=== PATIENT | male | born 1990 | race Caucasian/White ===

== ENCOUNTER 2016-05-30 02:40 | Observation (INO) | payer OTHER ==
[~2016-05-30] VITALS: Ht 182.9 cm; Wt 64.0 kg
[2016-05-30 03:35] LABS: BASO % 0.5 %; BASO ABS # 0.05 K/uL (0-0.2); COMPLETE YES; EOS % 0.9 %; HEMATOCRIT 34.5 % (42-52); IG% 0.3 %; LYMPH % 9.7 %; LYMPH ABS # 0.93 K/uL (1.2-3.4); MEAN CELL VOLUME 88.5 fL (80-100); MEAN CORPUSCULAR HEMOGLOBIN 31.8 pg (25-34); MEAN CORPUSCULAR HGB CONC 35.9 g/dl (32-36); MEAN PLATELET VOLUME 10.1 fL (7.4-10.4); MONO % 8.6 %; PLATELET COUNT 190 K/uL (130-400); WHITE BLOOD COUNT 9.58 K/uL (4.8-10.8)
[2016-05-30] MEDS ORDERED: LORAZEPAM 2 MG/ML 1 ML VIAL IV STA (03:35)
[2016-05-30 03:44] LABS: INR 1.1 (0.9-1.1); PROTHROMBIN TIME (PATIENT) 11.3 SECONDS (9.0-12.0)
[2016-05-30 03:46] LABS: URINE APPEARANCE TURBID (CLEAR); URINE BILIRUBIN NEG (NEG); URINE COLOR YELLOW; URINE NITRITE NEG (NEG); URINE SPECIFIC GRAVITY 1.018 (1.000-1.030); UROBILINOGEN NEG (NEG)
[2016-05-30 03:48] LABS: MANUAL MICROSCOPIC REQUIRED? NO; REVIEW REQ? NO
[2016-05-30 03:50] LABS: BLOOD UREA NITROGEN 14 mg/dl (7-18); BUN/CREATININE RATIO 12.8 (10-20); CALCIUM 8.9 mg/dl (8.5-10.1); CARBON DIOXIDE 22 mmol/L (21-32); CHLORIDE 105 mmol/L (98-107); GLUCOSE 168 mg/dl (70-99); MAGNESIUM 2.3 mg/dl (1.8-2.4); POTASSIUM 3.4 mmol/L (3.5-5.1); SODIUM 138 mmol/L (136-145)
[2016-05-30] MEDS ORDERED: LEVETIRACETAM 500 MG TAB PO STA (03:59)
[2016-05-30 04:01] LABS: PHOSPHORUS 2.3 mg/dl (2.5-4.9)
[2016-05-30 04:12] LABS: BENZODIAZEPINE, URINE NEG (NEG); COCAINE,URINE NEG (NEG); PHENCYCLIDINE, URINE NEG (NEG)
[2016-05-30] MEDS ORDERED: POTASSIUM CHLORIDE 10 MEQ TABCR PO STA (04:15)
[2016-05-30] MEDS ORDERED: QUET1TAB10 PO (04:19)
[2016-05-30] MEDS ORDERED: BUSP30TA2 PO (04:19)
[2016-05-30] MEDS ORDERED: WLLSR150 PO (04:19)
[2016-05-30 04:31] LABS: ALKALINE PHOSPHATASE 141 U/L (45-117); ALT/SGPT 18 U/L (12-78); AST/SGOT 10 U/L (15-37)
--- NOTE | 2016-05-30 04:33 | EMERGENCY ROOM VISIT NOTE ---
History First contact with patient: 02:45 Chief Complaint: SHOULDER PAIN Stated Complaint: SHOULDER PAIN History of Present Illness The patient is a 25 year old male who presents to the Emergency Room with complaints of 2 possible seizures tonight and right shoulder pain. Patient is unsure how he hurt his right shoulder. Patient did not know he had a seizure. Patient describes the pain as aching, ranging in severity 6 out of 10 to the right shoulder. He is recovering from narcotic abuse. Patient was taking Percocet. He is been clean for one week. Patient denies any other illicit drug use. No alcohol use. No benzos. No prior history of seizures. Patient denies headache, neck pain, back pain, chest pain, dyspnea, abdominal pain or any other medical complaints. I did obtain history from the mother who witnessed the seizure tonight. She states he was walking to the bathroom, fell and shook for a few minutes. She also states that the girlfriend states that he had a shaking episode while in bed. She states that he was postictal. She states she was going over the check on him as he was complaining his shoulder was her all day. The patient is unsure of how he injured his shoulder. I asked the patient several times about illegal drug use and he denied this. Review of Systems See HPI for pertinent positives & negatives. A total of 10 systems reviewed and were otherwise negative. Past Medical/Surgical History Medical Problems: (1) Alcohol Abuse-Unspec (2) Cannabis Abuse-Unspec (3) Cocaine Abuse-Unspec (4) Sepsis (5) Tobacco Use Disorder Family History No family history noted Social History Smoking Status: Current Every Day Smoker Alcohol Use: occasionally Drug Use: none Marital Status: single Housing Status: lives with significant other Occupation Status: employed Current/Historical Medications Scheduled Bupropion HCl (Bupropion HCl Sr), 150 MG PO QPM Buspirone Hcl (Buspirone Hcl), 15 MG PO TID Quetiapine Fumarate (Seroquel), 200 MG PO HS Allergies Coded Allergies: No Known Allergies (Verified , 05/30/16) Physical Exam Vital Signs Date Time Temp Pulse Resp B/P Pulse Ox O2 Delivery O2 Flow Rate FiO2 05/30/16 03:34 100 18 115/58 96 Room Air 05/30/16 03:04 96 Room Air 05/30/16 02:55 109 05/30/16 02:51 36.7 89 18 115/74 96 Room Air Physical Exam VITALS: Vitals are noted on the nurse's note and reviewed by myself. Vital signs stable. GENERAL: Pleasant male, in no acute distress, nondiaphoretic, well-developed well-nourished. SKIN: The skin was without rashes, erythema, edema, or bruising. There is no tenting of the skin. Capillary reflex less than 2 seconds. HEAD: Normocephalic atraumatic. EARS: External auditory canals clear, tympanic membranes pearly chandler without erythema or effusion bilaterally. EYES: Pupils equal round and reactive to light and accommodation. Conjunctivae without injection, sclerae without icterus. Extraocular movements intact. NOSE: Patent, turbinates without inflammation or discharge. MOUTH: Mucous membranes moist. Pharynx without erythema or exudate. Uvula midline. Airway patent. Tongue does not deviate. NECK: Supple without nuchal rigidity. No lymphadenopathy. No thyromegaly. Cervical spine is nontender. No JVD. HEART: Regular rate and rhythm without murmurs gallops or rubs. LUNGS: Clear to auscultation bilaterally without wheezes, rales or rhonchi. No dullness to percussion. No retractions or accessory muscle use. ABDOMEN: Positive bowel sounds x 4. Normal tympanic percussion. Soft, nontender, without masses or organomegaly. Vanegas sign negative. No guarding or rebound tenderness. MUSCULOSKELETAL: No muscle atrophy, erythema, or edema noted. Right shoulder edematous and tender to palpation, no right clavicle, humeral or elbow pain. Radial pulses +2 equal present bilaterally. NEURO: Patient was alert and oriented to person place and time. Normal sensation to light and sharp touch. No focal neurological deficits. Medical Decision & Procedures Laboratory Results 05/30/16 03:15 Red Blood Count 3.90, Mean Corpuscular Volume 88.5, Mean Corpuscular Hemoglobin 31.8, Mean Corpuscular Hemoglobin Concent 35.9, Mean Platelet Volume 10.1, Neutrophils (%) (Auto) 80.0, Lymphocytes (%) (Auto) 9.7, Monocytes (%) (Auto) 8.6, Eosinophils (%) (Auto) 0.9, Basophils (%) (Auto) 0.5, Neutrophils # (Auto) 7.66, Lymphocytes # (Auto) 0.93, Monocytes # (Auto) 0.82, Eosinophils # (Auto) 0.09, Basophils # (Auto) 0.05 05/30/16 03:15 Test 05/30/16 03:15 05/30/16 03:30 White Blood Count 9.58 K/uL (4.8-10.8) Red Blood Count 3.90 M/uL (4.7-6.1) Hemoglobin 12.4 g/dL (14.0-18.0) Hematocrit 34.5 % (42-52) Mean Corpuscular Volume 88.5 fL (80-100) Mean Corpuscular Hemoglobin 31.8 pg (25-34) Mean Corpuscular Hemoglobin Concent 35.9 g/dl (32-36) Platelet Count 190 K/uL (130-400) Mean Platelet Volume 10.1 fL (7.4-10.4) Neutrophils (%) (Auto) 80.0 % Lymphocytes (%) (Auto) 9.7 % Monocytes (%) (Auto) 8.6 % Eosinophils (%) (Auto) 0.9 % Basophils (%) (Auto) 0.5 % Neutrophils # (Auto) 7.66 K/uL (1.4-6.5) Lymphocytes # (Auto) 0.93 K/uL (1.2-3.4) Monocytes # (Auto) 0.82 K/uL (0.11-0.59) Eosinophils # (Auto) 0.09 K/uL (0-0.5) Basophils # (Auto) 0.05 K/uL (0-0.2) RDW Standard Deviation 39.5 fL (36.4-46.3) RDW Coefficient of Variation 12.3 % (11.5-14.5) Immature Granulocyte % (Auto) 0.3 % Immature Granulocyte # (Auto) 0.03 K/uL (0.00-0.02) Prothrombin Time 11.3 SECONDS (9.0-12.0) Prothromb Time International Ratio 1.1 (0.9-1.1) Activated Partial Thromboplast Time 25.4 SECONDS (21.0-31.0) Partial Thromboplastin Ratio 1.0 Anion Gap 11.0 mmol/L (3-11) Est Creatinine Clear Calc Drug Dose 92.1 ml/min Estimated GFR () 106.8 Estimated GFR (Non- 92.2 BUN/Creatinine Ratio 12.8 (10-20) Calcium Level 8.9 mg/dl (8.5-10.1) Phosphorus Level 2.3 mg/dl (2.5-4.9) Magnesium Level 2.3 mg/dl (1.8-2.4) Thyroid Stimulating Hormone (TSH) 2.480 uIu/ml (0.300-4.500) Ethyl Alcohol mg/dL < 3.0 mg/dl (0-3) Urine Color YELLOW Urine Appearance TURBID (CLEAR) Urine pH 5.0 (4.5-7.5) Urine Specific Adell 1.018 (1.000-1.030) Urine Protein TRACE (NEG) Urine Glucose (UA) NEG (NEG) Urine Ketones TRACE (NEG) Urine Occult Blood NEG (NEG) Urine Nitrite NEG (NEG) Urine Bilirubin NEG (NEG) Urine Urobilinogen NEG (NEG) Urine Leukocyte Esterase NEG (NEG) Urine WBC (Auto) 1-5 /hpf (0-5) Urine RBC (Auto) 0-4 /hpf (0-4) Urine Hyaline Casts (Auto) 5-10 /lpf (0-5) Urine Epithelial Cells (Auto) 10-20 /lpf (0-5) Urine Bacteria (Auto) NEG (NEG) Urine Opiates Screen NEG (NEG) Urine Methadone, Qualitative NEG (NEG) Urine Barbiturates NEG (NEG) Urine Phencyclidine (PCP) Level NEG (NEG) Ur Amphetamine/Methamphetamine POS (NEG) MDMA (Ecstasy) Screen POS (NEG) Urine Benzodiazepines Screen NEG (NEG) Urine Cocaine Metabolite NEG (NEG) Urine Marijuana (THC) NEG (NEG) Medications Administered Medications (Trade) Dose Ordered Sig/Saira Route Start Time Stop Time Status Last Admin Dose Admin Lorazepam (Ativan Inj) 1 mg NOW STAT IV 05/30/16 03:35 05/30/16 03:36 DC 05/30/16 03:56 1 MG Levetiracetam (Keppra Tab) 1,000 mg NOW STAT PO 05/30/16 03:59 05/30/16 04:01 DC 05/30/16 04:11 1,000 MG ED Course Prior records/ancillary studies reviewed. Patient placed in seizure precautions immediately upon arrival. Nursing notes reviewed. Additional history obtained from family The patient's history was concerning for a possible seizure. Differential diagnosis: Etiologies such as infection, hypoglycemia, electrolyte abnormalities, cardiac sources, intracerebral event, trauma, toxicologic, neurologic, as well as others were entertained. Physical examination: As above. No signs of trauma. ER treatment provided: Keppra, IV fluids, Ativan On reassessment the patient felt better. Diagnostics interpretation by me: The labs revealed negative alcohol. + drug screen Imaging studies: Shoulder x-ray concerning for humeral head fracture per my interpretation. Patient was placed in a sling and neurovascular status was checked after placement and is intact. Stat radiology read the head skin negative for intracranial bleed Consultation: A consultation was placed with the hospitalist, Dr. Hernadez. The case was discussed and diagnostics were reviewed. Patient will be evaluated by medicine for possible admission. I consulted Dr. Cotton, neurology and recommended EEG, brain MRI, admission and Keppra. Patient was started on Keppra. He'll be evaluated by medicine. Further imaging was ordered as per recommendations of neurology. The patient was counseled not to drive until cleared in follow-up and seizure precautions given. I gave my usual and customary discussion regarding these issues. The appropriate [place] driver's license form was completed and submitted. The pt informed about the findings as listed above. All questions were answered and pleased with the treatment. case reviewed with my Attending Medical Decision As above Impression Primary Impression: Seizure Additional Impression: Fracture of humeral head, right, closed Departure Information Dispostion Being Evaluated By Hospitalist Condition FAIR Referrals No Doctor, Assigned (PCP) Patient Instructions My [facility] Problem Qualifiers
[2016-05-30] MEDS ORDERED: POTASSIUM PHOS 3 MMOL/1 ML INFUSION IV STA (05:31)
[2016-05-30] MEDS ORDERED: LORAZEPAM INJ 1 MG in SYRINGE 0.5 ML IV PRN ×2 (05:45→06:30)
[2016-05-30] MEDS ORDERED: LORAZEPAM 2 MG/ML 1 ML VIAL IV PRN (05:45)
[2016-05-30] MEDS ORDERED: ONDANSETRON INJ 2 MG/ML 2 ML VIAL IV PRN (05:45)
[2016-05-30] MEDS ORDERED: ACETAMINOPHEN 325 MG TAB PO PRN (05:45)
[2016-05-30] MEDS ORDERED: IV FLUIDS COMPLETED PRN (06:15)
--- NOTE | 2016-05-30 06:41 | DIAGNOSTIC IMAGING REPORT ---
RIGHT SHOULDER MIN 2 VIEWS ROUTINE CLINICAL HISTORY: Right shoulder pain status post trauma. Seizure. COMPARISON: None. DISCUSSION: There is acute intra-articular fracture involving the greater tuberosity. No dislocation is visualized. IMPRESSION: Acute intra-articular fracture involving the greater tuberosity. Electronically signed by: Laureano Juarez M.D. 05/30/2016 6:39 AM Dictated Date/Time: 05/30/2016 6:38 AM
[2016-05-30 07:00] VITALS: O2SAT 97; Ht 182.9 cm; Wt 64.0 kg
[2016-05-30 07:15] VITALS: BP 109/69; PULSE 87; TEMP 36.5; O2SAT 96
[2016-05-30 07:17] LABS: ESTIMATED AVERAGE GLUCOSE 100 mg/dl; HA1C FLAG Normal (Normal)
--- NOTE | 2016-05-30 07:19 | DIAGNOSTIC IMAGING REPORT ---
CT OF THE HEAD WITHOUT CONTRAST CLINICAL HISTORY: Seizure. COMPARISON STUDY: Head CT December 26, 2010. TECHNIQUE: Helical axial images of the head were obtained without IV contrast. Automated exposure control was utilized for the study. FINDINGS: No acute intracranial hemorrhage, midline shift or mass effect is present. Ventricular system is normal. The basilar cisterns are patent. No extra-axial collections are present. Pelaez-white differentiation is maintained. There are no CT findings to suggest acute dural sinus thrombosis or acute territorial infarct. There is no calvarial fracture. There is extensive mucosal thickening of the right maxillary sinus. There is mild mucosal thickening of the left maxillary and ethmoid sinuses. Mastoid air cells are clear. IMPRESSION: 1. No acute intracranial findings. 2. No calvarial fracture. 3. Paranasal sinus disease, as described above. Electronically signed by: Miguel Sierra M.D. 05/30/2016 7:17 AM Dictated Date/Time: 05/30/2016 7:15 AM
[2016-05-30 07:45] VITALS: O2SAT 97
[2016-05-30] MEDS ORDERED: NSS + 20MEQ KCL 1000ML 1,000 ML IV ONE (08:00)
[2016-05-30] MEDS ORDERED: POTASSIUM PHOSPHATE INJ 15 MMOL in SODIUM CHLORIDE 0.9% 250ML 250 ML IV SCH (08:00)
--- NOTE | 2016-05-30 08:09 | HISTORY & PHYSICAL EXAMINATION ---
DATE OF ADMISSION: 05/30/2016 PATIENT'S PRIMARY CARE DOCTOR: Dr. Goff. Limited history from px secondary to disorientation, lethargy post-Ativan. Additional hx obtained from px's mother, records. CHIEF COMPLAINT: R Shoulder pain as per px. Possible seizures as per mother. HISTORY OF PRESENT ILLNESS: Medical history significant for past substance (narcotics)/alcohol abuse, ongoing tobacco abuse, mood disorder. Chronic anemia (baseline Hg 10-11). Recent confinement in [facility] last January 2016 for sepsis secondary to odontogenic infection progressing to neck space. Patient transferred to [facility]. Underwent drainage of buccal space abscess. Patient subsequently completed incarceration later went to alcohol and drug rehab at [place] for a period of 18 days last month. Patient has just been home the last 2 weeks. Mood okay as per mom. Last night, the patient called his mom tell her of right shoulder pain. Cannot recall how he hurt his right shoulder. Patient's mother went to his house. Noted patient to be a little wifty. Px was walking down the hallway when she saw patient fall down, had tonic clonic seizures lasting about a minute, lips blue, no tongue biting some mild frothing. Patient has no recollection of episode. Px still confused upon arrival of EMS. Px denies headaches. Patient denies recent intake of narcotics or alcohol. Patient's girlfriend said patient may have been shaking the other night. At the Emergency Room patient complaining of achy right shoulder pain. Patient given Ativan, Keppra load for possible seizures. MEDICAL HISTORY: As above. anemia fisher 01/2016 low TIB SURGERIES: He has had dental surgeries, orthopedic surgeries. HOME MEDICATIONS: Buspirone, bupropion, Klonopin, Seroquel. ALLERGIES: No known drug allergies. FAMILY HISTORY: Unknown to patient. PERSONAL AND SOCIAL HISTORY: Ongoing tobacco abuse. No recent alcohol. Currently, unemployed. REVIEW OF SYSTEMS: As per HPI. All other ROS negative. PHYSICAL EXAMINATION: VITAL SIGNS: Blood pressure was noted to be 115/50, pulse rate 100, RR 18, temperature 36.7, sats 96 on room air. GENERAL: Noted to be disoriented, no respiratory distress, sleepy. SKIN : pallor HEENT: Pale palpebral conjunctivae. Dry mucosa. NECK: No JVD. Supple. CHEST: Clear to auscultation. HEART: Regular rate and rhythm. ABDOMEN: Soft. EXTREMITIES: No LE edema. Tenderness in the right shoulder. NE lethargy, miotic pupils LABS: Hemoglobin 12.4, hematocrit 34.1, white cell count 10, platelets 190. Sodium 136, potassium 3.4, chloride 105, CO2 20, BUN 14, creatinine 1.1, glucose 168. CT of the head no acute pathology. Shoulder x-ray acute fracture greater tuberosity, right humerus. UA tox positive amphetamine/methamphetamine. ASSESSMENT: 1. New onset seizures ? relation to bupropion rule out seizure disorder. 2. Hypokalemia. 3. Ongoing tobacco abuse. 4. History of past substance/alcohol abuse. 5. Right shoulder pain, fracture secondary to fall/seizures. 6. chronic anemia [facility] anemia fisher showed low TIBC 01/2016 Hg better than baseline PLAN: OBS GMF Ativan prn, seizure precautions Keppra for now for seizure prophylaxis as per Neuro recommendation as per conversation w/ ER provider EEG, MRI brain for seizure workup. Hold bupropion until patient seen by Neurology. replace potassium. Orthopedics consult RE right humeral fx Nicotine patch prn DVT prophylaxis, SCDs. Full code. MTDD
[2016-05-30] MEDS: BusPIRone 15 MG TAB PO SCH ×3 (09:19→20:54)
[2016-05-30] MEDS: KETOROLAC TROMETHAMINE 30 MG/ML VIAL IV PRN ×3 (09:24→23:39)
[2016-05-30] MEDS ORDERED: LEVETIRACETAM 500 MG TAB PO SCH (12:00)
[2016-05-30] MEDS: IBUPROFEN 200 MG TAB PO PRN (13:16)
--- NOTE | 2016-05-30 13:41 | ELECTROENCEPHALOGRAPH REPORT ---
REQUESTING: Jennifer Valderrama PA-C. CLINICAL DIAGNOSIS: Possible seizures with history of drug abuse. EEG DIAGNOSIS: Essentially normal during wakefulness. DESCRIPTION OF TRACING: This EEG obtained as a bedside recording is of good technical quality. There was a simultaneous video analysis of patient movement and behavior. Photic stimulation is the only stimulus parameter utilized. Drowsiness and light sleep are not clearly recorded. There is a modest amount of muscle movement artifacts throughout the tracing, but by in large the tracing is interpretable as large segments of it are free of artifact. During these intervals there is evidence for normal appearing background rhythm in the alpha range of up to 9-10 Hz of maximum frequency and 30 microvolts of maximum amplitude. This is maximum posterior head regions bilaterally symmetrical. Polymorphic mid frequency theta activity is seen over all head regions without clear focal or regional predominance. Anterior head region maximum bilaterally symmetrical low voltage fast activity in the beta range is present. Photic stimulation provokes modest driving response without a photomyogenic or photoparoxysmal component. At no time during the waking tracing is there evidence for potentially epileptogenic activity in the form of polyspike or spike wave bursts, focal sharp waves or focal spikes. INTERPRETATION: This EEG is essentially normal during wakefulness without evidence for focal or generalized encephalopathy and without evidence for potentially epileptogenic activity.
--- NOTE | 2016-05-30 13:43 | DIAGNOSTIC IMAGING REPORT ---
MRI OF THE BRAIN WITHOUT AND WITH IV CONTRAST SEIZURE PROTOCOL CLINICAL HISTORY: Seizures. COMPARISON STUDY: Head CT December 26, 2010 and MRI of the brain May 30, 2016. TECHNIQUE: Utilizing a 1.5 Helen magnet and dedicated coil, multiplanar, multiecho imaging of the brain was performed pre and postcontrast administration. IV administration of 6 mL of Gadavist contrast was uneventful. Thin cut coronal T2 imaging was performed according to seizure protocol. FINDINGS: There are no areas of restricted diffusion. No acute intracranial hemorrhage, midline shift or mass effect is present. Volume is normal. Ventricular system is normal. The basilar cisterns are patent. There are no extra-axial collections. Flow-voids for the major intracranial vessels are present. No areas of parenchymal signal abnormality are present. No intracranial masses or pathologic enhancement is present. There is a small amount of fluid within the right mastoid air cells. There is moderate mucosal thickening of the right maxillary sinus and mild mucosal thickening of the left maxillary and ethmoid sinuses. Calvarial signal is maintained IMPRESSION: 1. Unremarkable MRI of the brain. 2. Paranasal sinus disease and a small amount of fluid within the right mastoid air cells. Electronically signed by: Miguel Sierra M.D. 05/30/2016 1:41 PM Dictated Date/Time: 05/30/2016 1:33 PM
--- NOTE | 2016-05-30 14:09 | Neurology Consultation ---
Neurology Consultation Date of Consultation: May 30, 2016. Attending Physician: Edgar Cruz MD Primary Care Physician: No Doctor, Assigned Reason for Consultation: seizure History of Present Illness Source: patient, parent, other Tr is a 25 year old with a H substance alcohol abuse, ongoing tobacco abuse , mood disorder. He was incarcerated and had a tooth pulled which led to an admission to [facility] last January 2016 for sepsis secondary to odontogenic infection progressing to neck space. He was then transferred to [facility]. He then went to alcohol and drug rehab at [place] for a period of 18 days last month. He returned home 2 weeks ago. He called his mom last night and was complaining of right shoulder pain. Cannot recall how he hurt his right shoulder. She saw him fall down and have a tonic clonic seizures lasting about a minute, lips blue, no tongue biting some mild frothing. He remembers them telling him to sit in the recliner but does not remember the event. His girlfriend told the mom she saw some shaking the other night. He was started on Keppra for possible seizures. He had no past surgeries, was a normal per mom, no febrile seizures as a child, he has had many broken bones. denies CP, SOB, abdominal pain, weakness, numbness tingling, N,V, headache swallowing difficulties. He is a 1/2 pack per day smoker, some EtOH use, denies any recent drug use. Past Medical/Surgical History Medical Problems: (1) Facial cellulitis Status: Acute (2) Fracture of humeral head, right, closed Status: Acute (3) Seizure Status: Acute Social History Smoking Status: Current every day smoker Smokeless Tobacco Use: No Alcohol Use: socially Drug Use: none Marital Status: single Housing Status: lives with significant other Occupation Status: employed, unemployed Allergies Coded Allergies: No Known Allergies (Verified , 05/30/16) Current Inpatient Medications Current Inpatient Medications Medications (Trade) Dose Ordered Sig/Saira Route Start Time Stop Time Status Last Admin Dose Admin Acetaminophen 650 mg 650 mg Q4H PRN PO 05/30/16 05:45 06/29/16 05:44 05/30/16 10:22 650 MG Potassium Chloride/Sodium Chloride (Nss + 20meq KCl 1000ml) 1,000 ml @ 100 mls/hr Q10H ONCE IV 05/30/16 08:00 05/30/16 17:59 05/30/16 08:06 100 MLS/HR Ondansetron HCl (Zofran Inj) 4 mg Q6H PRN IV 05/30/16 05:45 06/29/16 05:44 Lorazepam (Ativan Inj) 0.5 mg Q4H PRN IV 05/30/16 05:45 06/29/16 05:44 Ibuprofen (Advil Tab) 400 mg Q6H PRN PO 05/30/16 05:45 06/29/16 05:44 05/30/16 13:16 400 MG Ketorolac Tromethamine (Toradol Inj) 30 mg Q6H PRN IV 05/30/16 05:45 06/04/16 05:44 05/30/16 09:24 30 MG Levetiracetam 500 mg 500 mg BID PO 05/30/16 12:00 06/29/16 11:59 05/30/16 12:41 500 MG Lorazepam/Syringe (Ativan Inj/ Syringe) 1 ml @ 0.5 mls/min Q5M PRN IV 05/30/16 05:45 06/29/16 05:44 Quetiapine Fumarate (seroQUEL TAB) 200 mg HS PO 05/30/16 21:00 06/29/16 20:59 Buspirone HCl (BusPAR TAB) 15 mg TID PO 05/30/16 09:00 06/29/16 08:59 05/30/16 09:19 15 MG Miscellaneous 1 ea 1 ea PRN PRN N/A 05/30/16 06:15 05/30/17 06:14 Lorazepam/Syringe (Ativan Inj/ Syringe) 1 ml @ 0.5 mls/min Q4H PRN IV 05/30/16 06:30 06/29/16 06:29 Physical Exam Vital Signs (Past 24 Hrs): Date Time Temp Pulse Resp B/P Pulse Ox O2 Delivery O2 Flow Rate FiO2 05/30/16 07:45 97 Room Air 05/30/16 07:07 92 16 106/67 96 Room Air 05/30/16 07:00 97 Room Air 05/30/16 05:30 97 16 119/63 97 Room Air 05/30/16 05:00 95 16 05/30/16 04:30 100 15 05/30/16 04:00 101 15 05/30/16 03:34 100 18 115/58 96 Room Air 05/30/16 03:33 115/68 05/30/16 03:30 102 16 05/30/16 03:04 96 Room Air 05/30/16 02:55 109 05/30/16 02:51 36.7 89 18 115/74 96 Room Air Physical Exam: Constitutional: appearance nourished, thin pale Ears, Nose, Mouth and Throat: mucous membranes moist, no injection and skin normal, eyes normal Cardiovascular: normal S-1 and S-2 and regular rate and rhythm Respiratory: clear to auscultation (CTA) and no rales, rhonchi or wheeze Musculoskeletal: no peripheral edema and good distal pulses, arm in sling edema at humeral head Skin: no stigmata of neurocutaneous disease noted and normal and intact Eyes: extraocular muscles intact (EOMI) and pupils equal, round and reactive to light (PERRL) NEUROLOGIC EXAMINATION: Mental status: Alert and interactive Oriented to full date and location Oriented to person Speech fluent with no evidence of aphasia Cranial Nerves smile, eye brow raise, tongue midline no trauma seen Reflexes: Deep tendon reflexes were symmetrical and graded 2/5. Plantar responses were flexor. Coordination: finger to nose on left without bi pass Gait/Stance: Posture normal. Gait normal: with steady with steps, base, turning, and tandem gait. Motor: unable to assess arm in sling Strength: Normal - 5/5 all extremities Laboratory Results Past 24 Hours: 05/30/16 03:15 Red Blood Count 3.90, Mean Corpuscular Volume 88.5, Mean Corpuscular Hemoglobin 31.8, Mean Corpuscular Hemoglobin Concent 35.9, Mean Platelet Volume 10.1, Neutrophils (%) (Auto) 80.0, Lymphocytes (%) (Auto) 9.7, Monocytes (%) (Auto) 8.6, Eosinophils (%) (Auto) 0.9, Basophils (%) (Auto) 0.5, Neutrophils # (Auto) 7.66, Lymphocytes # (Auto) 0.93, Monocytes # (Auto) 0.82, Eosinophils # (Auto) 0.09, Basophils # (Auto) 0.05 05/30/16 03:15 Test 05/30/16 03:15 05/30/16 03:30 White Blood Count 9.58 K/uL (4.8-10.8) Red Blood Count 3.90 M/uL (4.7-6.1) Hemoglobin 12.4 g/dL (14.0-18.0) Hematocrit 34.5 % (42-52) Mean Corpuscular Volume 88.5 fL (80-100) Mean Corpuscular Hemoglobin 31.8 pg (25-34) Mean Corpuscular Hemoglobin Concent 35.9 g/dl (32-36) Platelet Count 190 K/uL (130-400) Mean Platelet Volume 10.1 fL (7.4-10.4) Neutrophils (%) (Auto) 80.0 % Lymphocytes (%) (Auto) 9.7 % Monocytes (%) (Auto) 8.6 % Eosinophils (%) (Auto) 0.9 % Basophils (%) (Auto) 0.5 % Neutrophils # (Auto) 7.66 K/uL (1.4-6.5) Lymphocytes # (Auto) 0.93 K/uL (1.2-3.4) Monocytes # (Auto) 0.82 K/uL (0.11-0.59) Eosinophils # (Auto) 0.09 K/uL (0-0.5) Basophils # (Auto) 0.05 K/uL (0-0.2) RDW Standard Deviation 39.5 fL (36.4-46.3) RDW Coefficient of Variation 12.3 % (11.5-14.5) Immature Granulocyte % (Auto) 0.3 % Immature Granulocyte # (Auto) 0.03 K/uL (0.00-0.02) Prothrombin Time 11.3 SECONDS (9.0-12.0) Prothromb Time International Ratio 1.1 (0.9-1.1) Activated Partial Thromboplast Time 25.4 SECONDS (21.0-31.0) Partial Thromboplastin Ratio 1.0 Anion Gap 11.0 mmol/L (3-11) Est Creatinine Clear Calc Drug Dose 92.1 ml/min Estimated GFR () 106.8 Estimated GFR (Non- 92.2 BUN/Creatinine Ratio 12.8 (10-20) Estimated Average Glucose 100 mg/dl Hemoglobin A1c 5.1 % (4.5-5.6) Calcium Level 8.9 mg/dl (8.5-10.1) Phosphorus Level 2.3 mg/dl (2.5-4.9) Magnesium Level 2.3 mg/dl (1.8-2.4) Total Bilirubin 0.2 mg/dl (0.2-1) Direct Bilirubin < 0.1 mg/dl (0-0.2) Aspartate Amino Transf (AST/SGOT) 10 U/L (15-37) Alanine Aminotransferase (ALT/SGPT) 18 U/L (12-78) Alkaline Phosphatase 141 U/L (45-117) Total Creatine Kinase 134 U/L (39-308) Total Protein 7.1 gm/dl (6.4-8.2) Albumin 4.0 gm/dl (3.4-5.0) Thyroid Stimulating Hormone (TSH) 2.480 uIu/ml (0.300-4.500) Ethyl Alcohol mg/dL < 3.0 mg/dl (0-3) Urine Color YELLOW Urine Appearance TURBID (CLEAR) Urine pH 5.0 (4.5-7.5) Urine Specific [place] 1.018 (1.000-1.030) Urine Protein TRACE (NEG) Urine Glucose (UA) NEG (NEG) Urine Ketones TRACE (NEG) Urine Occult Blood NEG (NEG) Urine Nitrite NEG (NEG) Urine Bilirubin NEG (NEG) Urine Urobilinogen NEG (NEG) Urine Leukocyte Esterase NEG (NEG) Urine WBC (Auto) 1-5 /hpf (0-5) Urine RBC (Auto) 0-4 /hpf (0-4) Urine Hyaline Casts (Auto) 5-10 /lpf (0-5) Urine Epithelial Cells (Auto) 10-20 /lpf (0-5) Urine Bacteria (Auto) NEG (NEG) Urine Opiates Screen NEG (NEG) Urine Methadone, Qualitative NEG (NEG) Urine Barbiturates NEG (NEG) Urine Phencyclidine (PCP) Level NEG (NEG) Ur Amphetamine/Methamphetamine POS (NEG) MDMA (Ecstasy) Screen POS (NEG) Urine Benzodiazepines Screen NEG (NEG) Urine Cocaine Metabolite NEG (NEG) Urine Marijuana (THC) NEG (NEG) Imaging MRI brain with and without-. Unremarkable MRI of the brain. Paranasal sinus disease and a small amount of fluid within the right mastoid air cells. xray shoulder- Acute intra-articular fracture involving the greater tuberosity. EEG-This EEG is essentially normal during wakefulness without evidence for focal or generalized encephalopathy and without evidence for potentially epileptogenic activity. Impression 25 year old male with new onset seizure activity Plan 1. continue Keppra 500 mg q 12 hours , was also loaded with 1000mg - will stop for now 2. Wellbutrin stopped do no restart lowers seizure threshold 3. patients labs are positive for Ecstasy and meth with are preliminary and may be false positive 4. seizure precautions 5. orthopedics for shoulder fracture 6. buspar and seraquel have been continued 7. EEG -negative for seizure activity- does not r/o seizure 8. MRI no inter cranial lesions or hemorrhage 9. will see back in our office in 2-3 weeks for further evaluation, Shanda Alves PAC schedule 10. discussed no driving until seizure free for 6 months, no bathing alone, no swimming alone no heights I have seen and discussed above patient care and management with Dr Shanda Queen, neurology Pt seen and examined. Pt dc from rehab for ETOH and marijuana addiction ( although other notes indicate opiods). The pt was started on the above meds approx 1 month ago including wellbutrin. He denies any recent narcotic, alcohol or benzodiazepine use. Tox screen was pos for ecstasy but confirmatory pending. When we spoke to the pt he was awakened from a nap. He was slightly distractible and briefly mentioned something about taking someones dog which was not appropriate, which seemed unrelated to what we were speaking about. He also presumably fractured his arm with no recollection of doing so, prior to the noted clinical seizures. The history is difficult, EEG and MRI normal and the patient was on Wellbutrin which is known to lower seizure threshold. I have elected to observe pt off Wellbutrin, off Keppra. He may not drive for 6 months. We will see the pt in the office post discharge. TONY Queen MD
[2016-05-30 15:00] VITALS: BP 119/75; PULSE 93; TEMP 36.4; O2SAT 98
[2016-05-30] MEDS: OXYCODONE/ACETAMINOPHEN 5-325 TAB PO PRN ×3 (15:08→23:39)
--- NOTE | 2016-05-30 16:27 | ORTHOPEDIC CONSULTATION ---
DATE OF CONSULTATION: 05/30/2016 HISTORY OF PRESENT ILLNESS: This is a 25-year-old gentleman seen at the request by Dr. Cruz and Dr. Hargrove, for right shoulder pain. Apparently, the patient was at home, had at least 1 or possibly 2 witnessed falls secondary to seizure. He had complaints of right shoulder pain and on the evening 05/29/2016. He had called to let his mother know that he had serious shoulder pain and he could not recall how he hurt his right shoulder. The patient's mother went to his house, saw the patient was unsteady with his gait walking down the hallway. She saw him fall down and had tonic clonic seizure episodes lasted approximately a minute, lips were blue, no tongue biting, some mild frothing and he had no recollection of the episode. His girlfriend also stated that he was shaking prior to that episode on another evening. He was diagnosed with a new onset seizure disorder, dosed with Keppra and admitted to the hospital for further care and management. The patient has a significant history of substance abuse including alcohol abuse, ongoing tobacco abuse, mood disorder; use of cocaine, cannabis and alcohol. He is taking prescription pain medication from time to time. He had a recent odontogenic infection which progressed to the next space. He was transferred to [facility]. He had incarceration and went to alcohol and drug rehab at [place] for approximately 18 days, last month. He has been home for the last 2 weeks. PAST MEDICAL HISTORY: As above. Denies recent alcohol or narcotics. He is chronically anemic. PAST SURGICAL HISTORY: Dental surgeries and orthopedic surgeries. ALLERGIES: No known drug allergies. MEDICATIONS: Buspirone, bupropion, Klonopin, Seroquel. ALLERGIES: No known drug allergies. SOCIAL HISTORY: Ongoing tobacco abuse. No recent alcohol or drug use, per the patient. He is currently unemployed. He is single. He has a girlfriend. PHYSICAL EXAMINATION: GENERAL: This is a 25-year-old male sitting supine in his hospital room bed with his mother present. He has a sling on the right upper extremity. He answers questions appropriately. A\T\O x3. Speech is relatively clear and fluent. He speaks [place]. EXTREMITIES: Examination of the right upper extremity demonstrates sling present. Skin is warm, dry and intact. He has obvious edema and some swelling of the right shoulder compared to left. He has some minor bruising in the inferior border of the deltoid. He has tenderness to palpation of the lateral and anterolateral aspect of the shoulder. He has limited active and passive range of motion of the right shoulder due to pain and guarding. Radial pulses are 2/4 bilaterally symmetric, upper extremities. Radial, ulnar, median and axillary nerve sensory and motor function is intact. No dysesthesias or paresthesias noted in bilateral upper extremities. RADIOGRAPHS REVIEW: Demonstrate right shoulder appears to be located within the glenohumeral joint. The greater tuberosity is fractured with minimal displacement. There is question whether there is extension into the intra-articular portion of the humeral head, per the radiographs provided. LABORATORY DATA: Reviewed. IMPRESSION: 1. Right minimally displaced greater tuberosity fracture of the humerus. 2. New onset seizure disorder. 3. Drug and alcohol abuse, by history. RECOMMENDATIONS: At this time, continue use of the arm sling, ice as needed for discomfort, right upper extremity, CT scan right upper extremity for assessment of possible intra-articular fracture extension of the right proximal humerus fracture, nonweightbearing of the right upper extremity. We will follow with you. Thank you for the opportunity to consult in the care of this patient.
--- NOTE | 2016-05-30 18:44 | Progress Note ---
Internal Med Progress Note Date of Service: May 30, 2016. Provider Documentation: SUBJECTIVE: complains of right shoulder denies chest pain or sob afebrile no more seizure activity OBJECTIVE: Vital Signs-as noted below Exam: General-alert and oriented ENT-normal hearing Neck-no neck masses Lungs-cta b/l no wheezing or crackles Heart-s1 and s2 heard regular rate and rhythm no murmurs Abdomen-soft bowel sounds present non tender no distension Extremities-no erythema s/p right shoulder sling Neuro-alert and awake moves extremities Lab data as noted below. ASSESSMENT & PLAN: 1. New onset seizures ? relation to bupropion rule out seizure disorder. started on Keppra eeg negative nephrology on board. 2. Hypokalemia.Replaced. 3. Ongoing tobacco abuse. 4. History of past substance/alcohol abuse.denies drug use. 5. Right shoulder pain, fracture secondary to fall/seizures. Appreciate ortho input. 6. chronic anemia [facility] anemia fisher showed low TIBC 01/2016 Hg 12.4 DVT PROPHYLAXIS scds DISPOSITION to be determined. Vital Signs: Date Time Temp Pulse Resp B/P Pulse Ox O2 Delivery O2 Flow Rate FiO2 05/30/16 15:00 36.4 93 16 119/75 98 Room Air 05/30/16 07:45 97 Room Air 05/30/16 07:15 36.5 87 18 109/69 96 Room Air 05/30/16 07:07 92 16 106/67 96 Room Air 05/30/16 07:00 97 Room Air 05/30/16 05:30 97 16 119/63 97 Room Air 05/30/16 05:00 95 16 05/30/16 04:30 100 15 05/30/16 04:00 101 15 05/30/16 03:34 100 18 115/58 96 Room Air 05/30/16 03:33 115/68 05/30/16 03:30 102 16 05/30/16 03:04 96 Room Air 05/30/16 02:55 109 05/30/16 02:51 36.7 89 18 115/74 96 Room Air Lab Results: Results Past 24 Hours Test 05/30/16 03:15 05/30/16 03:30 Range/Units White Blood Count 9.58 4.8-10.8 K/uL Red Blood Count 3.90 4.7-6.1 M/uL Hemoglobin 12.4 14.0-18.0 g/dL Hematocrit 34.5 42-52 % Mean Corpuscular Volume 88.5 80-100 fL Mean Corpuscular Hemoglobin 31.8 25-34 pg Mean Corpuscular Hemoglobin Concent 35.9 32-36 g/dl Platelet Count 190 130-400 K/uL Mean Platelet Volume 10.1 7.4-10.4 fL Neutrophils (%) (Auto) 80.0 % Lymphocytes (%) (Auto) 9.7 % Monocytes (%) (Auto) 8.6 % Eosinophils (%) (Auto) 0.9 % Basophils (%) (Auto) 0.5 % Neutrophils # (Auto) 7.66 1.4-6.5 K/uL Lymphocytes # (Auto) 0.93 1.2-3.4 K/uL Monocytes # (Auto) 0.82 0.11-0.59 K/uL Eosinophils # (Auto) 0.09 0-0.5 K/uL Basophils # (Auto) 0.05 0-0.2 K/uL RDW Standard Deviation 39.5 36.4-46.3 fL RDW Coefficient of Variation 12.3 11.5-14.5 % Immature Granulocyte % (Auto) 0.3 % Immature Granulocyte # (Auto) 0.03 0.00-0.02 K/uL Prothrombin Time 11.3 9.0-12.0 SECONDS Prothromb Time International Ratio 1.1 0.9-1.1 Activated Partial Thromboplast Time 25.4 21.0-31.0 SECONDS Partial Thromboplastin Ratio 1.0 Sodium Level 138 136-145 mmol/L Potassium Level 3.4 3.5-5.1 mmol/L Chloride Level 105 98-107 mmol/L Carbon Dioxide Level 22 21-32 mmol/L Anion Gap 11.0 3-11 mmol/L Blood Urea Nitrogen 14 7-18 mg/dl Creatinine 1.10 0.60-1.40 mg/dl Est Creatinine Clear Calc Drug Dose 92.1 ml/min Estimated GFR () 106.8 Estimated GFR (Non- 92.2 BUN/Creatinine Ratio 12.8 10-20 Random Glucose 168 70-99 mg/dl Estimated Average Glucose 100 mg/dl Hemoglobin A1c 5.1 4.5-5.6 % Calcium Level 8.9 8.5-10.1 mg/dl Phosphorus Level 2.3 2.5-4.9 mg/dl Magnesium Level 2.3 1.8-2.4 mg/dl Total Bilirubin 0.2 0.2-1 mg/dl Direct Bilirubin < 0.1 0-0.2 mg/dl Aspartate Amino Transf (AST/SGOT) 10 15-37 U/L Alanine Aminotransferase (ALT/SGPT) 18 12-78 U/L Alkaline Phosphatase 141 45-117 U/L Total Creatine Kinase 134 39-308 U/L Total Protein 7.1 6.4-8.2 gm/dl Albumin 4.0 3.4-5.0 gm/dl Thyroid Stimulating Hormone (TSH) 2.480 0.300-4.500 uIu/ml Ethyl Alcohol mg/dL < 3.0 0-3 mg/dl Urine Color YELLOW Urine Appearance TURBID CLEAR Urine pH 5.0 4.5-7.5 Urine Specific [place] 1.018 1.000-1.030 Urine Protein TRACE NEG Urine Glucose (UA) NEG NEG Urine Ketones TRACE NEG Urine Occult Blood NEG NEG Urine Nitrite NEG NEG Urine Bilirubin NEG NEG Urine Urobilinogen NEG NEG Urine Leukocyte Esterase NEG NEG Urine WBC (Auto) 1-5 0-5 /hpf Urine RBC (Auto) 0-4 0-4 /hpf Urine Hyaline Casts (Auto) 5-10 0-5 /lpf Urine Epithelial Cells (Auto) 10-20 0-5 /lpf Urine Bacteria (Auto) NEG NEG Urine Opiates Screen NEG NEG Urine Methadone, Qualitative NEG NEG Urine Barbiturates NEG NEG Urine Phencyclidine (PCP) Level NEG NEG Ur Amphetamine/Methamphetamine POS NEG MDMA (Ecstasy) Screen POS NEG Urine Benzodiazepines Screen NEG NEG Urine Cocaine Metabolite NEG NEG Urine Marijuana (THC) NEG NEG
[2016-05-30 19:45] VITALS: O2SAT 98
[2016-05-30] MEDS ORDERED: QUETIAPINE FUMARATE 200 MG TAB PO SCH (21:00)
--- NOTE | 2016-05-30 21:13 | DIAGNOSTIC IMAGING REPORT ---
RIGHT SHOULDER CT CT DOSE: 720.72 mGy.cm HISTORY: Right shoulder pain at Right Proximal Humerus Fracture Right TECHNIQUE: Multiaxial CT images of the right shoulder were performed and reformatted in the sagittal and coronal plane without the use of contrast. COMPARISON: Right shoulder 05/30/2016. FINDINGS: There is a slightly comminuted and mildly distracted fracture involving the greater tuberosity of the humeral head. This does not extend through the humeral neck. The scapula, clavicle, and visualized ribs are intact. Specifically, there are no fractures at the glenoid. The greater tuberosity fracture demonstrates up to 5 mm of distraction. Small to moderate joint effusion. Subcutaneous edema seen along the anterior aspect of the chest and upper arm. There is also soft tissue edema at the right axilla and within the subscapularis muscle. There is also mild edema within the anterior deltoid. IMPRESSION: 1. Slightly comminuted and mildly distracted fracture involving the greater tuberosity of the humeral head. This does not extend to the humeral neck area No dislocation. 2. Small to moderate joint effusion. 3. Subcutaneous edema within the anterior chest, upper arm, and right axilla consistent with posttraumatic changes. 4. There is also thickening and edema within the subscapularis muscle. This consistent with muscular strain/tear. Follow-up MRI can be performed to evaluate for additional soft tissue injury within the right shoulder. Electronically signed by: Mekhi Tanner M.D. 05/30/2016 9:11 PM Dictated Date/Time: 05/30/2016 9:03 PM
[2016-05-30 23:12] VITALS: BP 111/68; PULSE 83; TEMP 36.9; O2SAT 94
[2016-05-31] MEDS: KETOROLAC TROMETHAMINE 30 MG/ML VIAL IV PRN ×3 (05:28→18:58)
[2016-05-31] MEDS: OXYCODONE/ACETAMINOPHEN 5-325 TAB PO PRN ×4 (05:29→18:02)
[2016-05-31 06:15] LABS: CALCIUM 8.3 mg/dl (8.5-10.1); CREATININE 0.9 mg/dl (0.60-1.40); PHOSPHORUS 3.5 mg/dl (2.5-4.9); POTASSIUM 3.7 mmol/L (3.5-5.1)
[2016-05-31 07:15] VITALS: BP 117/79; PULSE 88; TEMP 37; O2SAT 97
[2016-05-31] MEDS: BusPIRone 15 MG TAB PO SCH ×2 (08:59→13:46)
--- NOTE | 2016-05-31 10:50 | Orthopedic Progress Note ---
Orthopedic Progress Note Date of Service May 31, 2016. Subjective Reports: feeling well Additional Notes: Pt resting comfortably in bed, sling in place, some pain with movement of shoulder Objective N/V intact (Fingers mobile) Date Time Temp Pulse Resp B/P Pulse Ox O2 Delivery O2 Flow Rate FiO2 05/31/16 09:13 Room Air 05/31/16 07:15 37.0 88 18 117/79 97 Room Air 05/30/16 23:12 36.9 83 16 111/68 94 Room Air 05/30/16 19:45 98 Room Air 05/30/16 15:00 36.4 93 16 119/75 98 Room Air Additional Notes: CT scan reviewed: mildly displaced greater tuberosity fx without intraarticular extension Assessment & Plan Assessment: 25 yo male with right shoulder minimally displaced greater tuberosity fx secondary to seizure Plan: 1. Med management 2. Cont sling right UE, pt to maintain elbow at side at all times, ok to flex/ extend elbow. Ortho to sign-off, pt should f/u with Dr Bowers as an outpt in ~ 2 weeks.
[2016-05-31 15:05] VITALS: BP 109/68; PULSE 97; TEMP 37; O2SAT 97
--- NOTE | 2016-05-31 15:58 | Progress Note ---
Internal Med Progress Note Date of Service: May 31, 2016. Provider Documentation: SUBJECTIVE: has pain in right shoulder afebrile no more seizure activity want to home OBJECTIVE: Vital Signs-as noted below Exam: General-alert and oriented ENT-normal hearing Neck-no neck masses Lungs-cta b/l no wheezing or crackles Heart-s1 and s2 heard regular rate and rhythm no murmurs Abdomen-soft bowel sounds present non tender no distension Extremities-no erythema s/p right shoulder sling Neuro-alert and awake moves extremities Lab data as noted below. ASSESSMENT & PLAN: 1. New onset seizures ? relation to bupropion rule out seizure disorder. started on Keppra eeg negative nephrology on board. Nephrology recommends to observe off of keppra and follw as out patinet No driving for 6 months 2. Hypokalemia.Replaced. 3. Ongoing tobacco abuse. 4. History of past substance/alcohol abuse.denies drug use. 5. Right shoulder pain, fracture secondary to fall/seizures. conservative management as per ortho. f/u with ortho in 2-3 weeks 6. chronic anemia [facility] [place] fisher showed low TIBC 01/2016 Hg 12.4 DVT PROPHYLAXIS scds DISPOSITION possible d/c today Vital Signs: Date Time Temp Pulse Resp B/P Pulse Ox O2 Delivery O2 Flow Rate FiO2 05/31/16 15:05 37.0 97 14 109/68 97 Room Air 05/31/16 09:13 Room Air 05/31/16 07:15 37.0 88 18 117/79 97 Room Air 05/30/16 23:12 36.9 83 16 111/68 94 Room Air 05/30/16 19:45 98 Room Air Lab Results: Results Past 24 Hours Test 05/31/16 05:20 Range/Units Sodium Level 146 136-145 mmol/L Potassium Level 3.7 3.5-5.1 mmol/L Chloride Level 112 98-107 mmol/L Carbon Dioxide Level 25 21-32 mmol/L Anion Gap 9.0 3-11 mmol/L Blood Urea Nitrogen 9 7-18 mg/dl Creatinine 0.90 0.60-1.40 mg/dl Est Creatinine Clear Calc Drug Dose 112.6 ml/min Estimated GFR () 136.1 Estimated GFR (Non- 117.5 BUN/Creatinine Ratio 10.0 10-20 Random Glucose 88 70-99 mg/dl Calcium Level 8.3 8.5-10.1 mg/dl Phosphorus Level 3.5 2.5-4.9 mg/dl
[2016-05-31] MEDS: IBUPROFEN 200 MG TAB PO PRN (16:49)
[2016-05-31] MEDS ORDERED: OXYC-57 PO (18:42)
--- NOTE | 2016-05-31 18:46 | Discharge Instructions ---
Discharge Instructions Admission Reason for Admission: Seizure Discharge Discharge Diagnosis / Problem: seizure? right humerus fracture Discharge Goals Goal(s): Decrease discomfort, Improve function Activity Recommendations Activity Limitations: per Instructions/Follow-up section . Instructions / Follow-Up Instructions / Follow-Up FOLLOWUP WITH FAMILY DOCTOR IN ONE WEEK( WILL TRY TO MAKE APPOINTMENT AND WILL BE CALLED WITH ONE) FOLLOWUP WITH NEUROLOGY IN 2-3 WEEKS( WILL TRY TO MAKE APPOINTMENT AND WILL BE CALLED WITH ONE ). ORTHOPEDICS RECOMMENDATION: Cont sling right UPPER EXTREMITY, to maintain elbow at side at all times, ok to flex/extend elbow. Should f/u with Dr Bowers (ORTHOPEDICS) as an outpt in ~ 2 weeks. 'S OFFICE:[address] [place] [address], [place] [id number] NO DRIVING FOR SEIZURE FREE FOR 6 MONTHS. NEUROLOGY WANT TO OBSERVE OFF OF BUPROPION. STOPPED BUPROPION. Current Hospital Diet Patient's current hospital diet: Regular Diet Discharge Diet Recommended Diet: Regular Diet Pending Studies Studies pending at discharge: no Laboratory Results Hemoglobin A1c Test 05/30/16 03:15 Range/Units Estimated Average Glucose 100 mg/dl Hemoglobin A1c 5.1 4.5-5.6 % Medical Emergencies . Who to Call and When: Medical Emergencies: If at any time you feel your situation is an emergency, please call 911 immediately. . Non-Emergent Contact Non-Emergency issues call your: Primary Care Provider . . "Provider Documentation" section prepared by Edgar Cruz. VTE Core Measure Inpt VTE Proph given/why not?: SCD's
[2016-05-31 18:54] VITALS: BP 109/68; PULSE 97; TEMP 37; O2SAT 97
--- NOTE | 2016-05-31 19:49 | Discharge Summary ---
Discharge Summary Admission Date: May 30, 2016 at 05:11 Discharge Date: May 31, 2016 Discharge Disposition: Home Principal Diagnosis: seizure? right humerus fracture Secondary Diagnoses/Problems: past substance (narcotics)/alcohol abuse, ongoing tobacco abuse, mood disorder. Chronic anemia (baseline Hg 10-11). Procedures: SHOULDER XARY: Acute intra-articular fracture involving the greater tuberosity. HEAD CT: 1. No acute intracranial findings. 2. No calvarial fracture. 3. Paranasal sinus disease, as described above. MRI HEAD: 1. Unremarkable MRI of the brain. 2. Paranasal sinus disease and a small amount of fluid within the right mastoid air cells. RIGHT SHOULDER CT:1. Slightly comminuted and mildly distracted fracture involving the greater tuberosity of the humeral head. This does not extend to the humeral neck area No dislocation. 2. Small to moderate joint effusion. 3. Subcutaneous edema within the anterior chest, upper arm, and right axilla consistent with posttraumatic changes. 4. There is also thickening and edema within the subscapularis muscle. This consistent with muscular strain/tear. Follow-up MRI can be performed to evaluate for additional soft tissue injury within the right shoulder. EEG: This EEG is essentially normal during wakefulness without evidence for focal or generalized encephalopathy and without evidence for potentially epileptogenic activity. Consultations: NEUROLOGY Medication Reconciliation New Medications: Oxycodone/Acetaminophen 5MG/325MG (Percocet 5MG/325MG) Tab 1 TAB PO Q6 PRN for Pain, #24 TAB PAIN Continued Medications: Buspirone Hcl (Buspirone Hcl) 30 Mg Tab 15 MG PO TID Quetiapine Fumarate (Seroquel) 200 Mg Tab 200 MG PO HS Discontinued Medications: Bupropion HCl (Bupropion HCl Sr) 150 Mg Tabcr 150 MG PO QPM Admission Information HPI (per Admitting provider): Medical history significant for past substance (narcotics)/alcohol abuse, ongoing tobacco abuse, mood disorder. Chronic anemia (baseline Hg 10-11). Recent confinement in [facility] last January 2016 for sepsis secondary to odontogenic infection progressing to neck space. Patient transferred to [facility]. Underwent drainage of buccal space abscess. Patient subsequently completed incarceration later went to alcohol and drug rehab at [facility] for a period of 18 days last month. Patient has just been home the last 2 weeks. Mood okay as per mom. Last night, the patient called his mom tell her of right shoulder pain. Cannot recall how he hurt his right shoulder. Patient's mother went to his house. Noted patient to be a little wifty. Px was walking down the hallway when she saw patient fall down, had tonic clonic seizures lasting about a minute, lips blue, no tongue biting some mild frothing. Patient has no recollection of episode. Px still confused upon arrival of EMS. Px denies headaches. Patient denies recent intake of narcotics or alcohol. Patient's girlfriend said patient may have been shaking the other night. At the Emergency Room patient complaining of achy right shoulder pain. Patient given Ativan, Keppra load for possible seizures. Physical Exam (per Admitting): VITAL SIGNS: Blood pressure was noted to be 115/50, pulse rate 100, RR 18, temperature 36.7, sats 96 on room air. GENERAL: Noted to be disoriented, no respiratory distress, sleepy. SKIN : pallor HEENT: Pale palpebral conjunctivae. Dry mucosa. NECK: No JVD. Supple. CHEST: Clear to auscultation. HEART: Regular rate and rhythm. ABDOMEN: Soft. EXTREMITIES: No LE edema. Tenderness in the right shoulder. NE lethargy, miotic pupils Hospital Course 1. New onset seizures ? relation to bupropion rule out seizure disorder. started on Keppra eeg negative nephrology on board. Nephrology recommends to observe off of Keppra and follow as out patient No driving for 6 months 2. Hypokalemia.Replaced. 3. Ongoing tobacco abuse. 4. History of past substance/alcohol abuse.denies drug use. 5. Right shoulder pain, fracture secondary to fall/seizures. conservative management as per ortho. f/u with ortho in 2-3 weeks 6. chronic anemia [facility] anemia fisher showed low TIBC 01/2016 Hg 12.4 DVT PROPHYLAXIS scds DISPOSITION DISCHARGED HOME Total time spent on discharge = 35MINUTES This includes examination of the patient, discharge planning, medication reconciliation, and communication with other providers. Discharge Instructions Discharge Instructions Admission Reason for Admission: Seizure Discharge Discharge Diagnosis / Problem: seizure? right humerus fracture Discharge Goals Goal(s): Decrease discomfort, Improve function Activity Recommendations Activity Limitations: per Instructions/Follow-up section . Instructions / Follow-Up Instructions / Follow-Up FOLLOWUP WITH FAMILY DOCTOR IN ONE WEEK( WILL TRY TO MAKE APPOINTMENT AND WILL BE CALLED WITH ONE) FOLLOWUP WITH NEUROLOGY IN 2-3 WEEKS( WILL TRY TO MAKE APPOINTMENT AND WILL BE CALLED WITH ONE ). ORTHOPEDICS RECOMMENDATION: Cont sling right UPPER EXTREMITY, to maintain elbow at side at all times, ok to flex/extend elbow. Should f/u with Dr Bowers (ORTHOPEDICS) as an outpt in ~ 2 weeks. 'S OFFICE:[address] [place] [id number] NO DRIVING FOR SEIZURE FREE FOR 6 MONTHS. NEUROLOGY WANT TO OBSERVE OFF OF BUPROPION. STOPPED BUPROPION. Current Hospital Diet Patient's current hospital diet: Regular Diet Discharge Diet Recommended Diet: Regular Diet Pending Studies Studies pending at discharge: no Laboratory Results Hemoglobin A1c Test 05/30/16 03:15 Range/Units Estimated Average Glucose 100 mg/dl Hemoglobin A1c 5.1 4.5-5.6 % Medical Emergencies . Who to Call and When: Medical Emergencies: If at any time you feel your situation is an emergency, please call 911 immediately. . Non-Emergent Contact Non-Emergency issues call your: Primary Care Provider . . "Provider Documentation" section prepared by Edgar Cruz. VTE Core Measure Inpt VTE Proph given/why not?: SCD's
== END 2016-05-31 19:15 | disposition home or self-care (01) ==
LOC: ENRESERVDT → ENRESERVTM → CANRESERV → EDBD 02:40 → C.EDB 02:41 → C.MSW 05:11
PROVIDERS: ADMIT Internal Medicine; ATTEND Internal Medicine
DX: G40.909 Epilepsy, unspecified, not intractable, without status epilepticus (principal); E87.6 Hypokalemia; S42.301A Unspecified fracture of shaft of humerus, right arm, initial encounter for closed fracture; W19.XXXA Unspecified fall, initial encounter; F17.200 Nicotine dependence, unspecified, uncomplicated; D64.9 Anemia, unspecified; F10.10 Alcohol abuse, uncomplicated

== ENCOUNTER 2016-11-29 19:33 | Emergency (ER) | payer OTHER ==
[~2016-11-29] VITALS: Ht 182.9 cm; Wt 60.0 kg
[~2016-11-29 19:33] MED LIST: BUSP30TA2 PO; OXYC-57 PO; QUET1TAB10 PO
[2016-11-29 19:46] VITALS: BP 119/71; PULSE 100; TEMP 36.5; O2SAT 97; Ht 182.9 cm; Wt 60.0 kg
[2016-11-29] MEDS ORDERED: ACET-1256 PO (20:08)
[2016-11-29] MEDS ORDERED: IBUP-103 PO (20:08)
[2016-11-29] MEDS ORDERED: PENICILLIN V POTASSIUM 250 MG TAB PO ONE (20:45)
--- NOTE | 2016-11-29 20:45 | EMERGENCY ROOM VISIT NOTE ---
ED Visit Note First contact with patient: 19:57 CHIEF COMPLAINT: Toothache HISTORY OF PRESENT ILLNESS: This 26-year-old male patient presented to the emergency department with a progressive toothache for past 2 days. He states the affected tooth is broken and has been for a while, but he has not had any issues with this tooth in the past. The patient believes it is coming from his back right upper molar. The pain is now steady and severe and radiates to the face. The patient does not have a dentist appointment set up, but states he is establish with a dentist and can arrange an appointment to follow-up. They rate their pain a 8/10 and the ibuprofen and Tylenol they have been taking has not relieved the pain. Patient notes taking 4 ibuprofen every 3-4 hours and 4 Tylenol every 4 hours for the past 2 days. He has not tried ice or heat. Denies facial swelling or fever. The patient denies any discharge from the mouth. REVIEW OF SYSTEMS: A 6 system review of systems was completed with positives and pertinent negatives listed in the HPI. ALLERGIES: See chart MEDICATIONS: See chart PMH: See chart SOCIAL HISTORY: See chart PHYSICAL EXAM: Vitals are noted on the nurse's note and reviewed by myself. Vital signs stable, afebrile. GENERAL: Pleasant and cooperative, in no acute distress, but does appear to be in some pain, non-diaphoretic, well-developed well-nourished. Mouth: The posterior right upper molar tooth is fractured and very carious and the gum is swollen and tender around it, without any discharge or signs of an abscess. The remainder of the pharynx and tonsils are without erythema, edema, or exudate. The airway is patent. There is no facial swelling, cervical or submandibular lymphadenopathy. The patient appears uncomfortable and in pain. The patient has overall poor dental hygiene. EARS: External auditory canals clear, tympanic membranes pearly chandler without erythema or effusion bilaterally. ED COURSE: I examined the patient. He was educated on proper dosing for over- the-counter Tylenol and ibuprofen, specifically cautioned against overdose of these medications. He was given a dose of penicillin to treat his suspected dental infection, as well as an ice pack. Prescription for penicillin sent to pharmacy. He was instructed to follow closely with his dentist for further management of his dental pain. He was discharged home in stable condition. Current/Historical Medications Scheduled Penicillin V Potassium (Veetids), 1 TAB PO QID Scheduled PRN Acetaminophen (Tylenol), 1,000 MG PO Q6H PRN for Pain Ibuprofen Tab (Advil), 400-600 MG PO Q6H PRN for Pain Allergies Coded Allergies: No Known Allergies (Verified , 05/30/16) Vital Signs Date Time Temp Pulse Resp B/P (MAP) Pulse Ox O2 Delivery O2 Flow Rate FiO2 11/29/16 19:46 36.5 100 16 119/71 97 Room Air Medications Administered Medications (Trade) Dose Ordered Sig/Saira Route Start Time Stop Time Status Last Admin Dose Admin Penicillin V Potassium (Veetids Tab) 500 mg NOW ONCE PO 11/29/16 20:45 11/29/16 20:46 DC 11/29/16 20:53 500 MG Departure Information Impression Primary Impression: Pain, dental Dispostion Home / Self-Care Condition GOOD Prescriptions Penicillin V Potassium (VEETIDS) 500 Mg Tab 1 TAB PO QID for 10 Days, #40 TAB Prov: Viviane Mayfield CRNP 11/29/16 Referrals No Doctor, Assigned (PCP) Patient Instructions ED Tooth Pain, My [facility] Additional Instructions Alternate ice and heat to the affected area for comfort. For pain you may take the following: Tylenol 1000 mg every 8 hours, not to exceed 3000 mg in 24 hours. Ibuprofen 600 mg every 6-8 hours, not to exceed 3200 mg in 24 hours. Penicillin 500 mg three times a day for 10 days for infection. See a dentist as soon as possible for definitive care. Return sooner if shortness of breath, discharge, or change in vision and hearing occur.
[2016-11-29] MEDS ORDERED: PENI500T2 PO (20:56)
== END 2016-11-29 21:52 | disposition home or self-care (01) ==
LOC: C.EDB 19:35 → C.EDD 21:52
DX: K08.89 Other specified disorders of teeth and supporting structures (principal)

== ENCOUNTER 2017-01-20 04:11 | Emergency (ER) | payer OTHER ==
[~2017-01-20] VITALS: Ht 182.9 cm; Wt 64.0 kg
[~2017-01-20 04:11] MED LIST changes: +ACET-1256 PO; -BUSP30TA2 PO; +IBUP-103 PO; -OXYC-57 PO; -QUET1TAB10 PO
[2017-01-20 04:14] VITALS: Ht 182.9 cm; Wt 64.0 kg
[2017-01-20] MEDS ORDERED: HYDROmorphone INJ 1 MG/ML SYR IV STA ×2 (04:29→05:08)
[2017-01-20] MEDS ORDERED: ONDANSETRON INJ 2 MG/ML 2 ML VIAL IV STA (04:29)
[2017-01-20] MEDS ORDERED: SODIUM CHLORIDE 0.9% 1000ML 1,000 ML IV STA (04:29)
--- NOTE | 2017-01-20 04:33 | EMERGENCY ROOM VISIT NOTE ---
History First contact with patient: 04:28 Chief Complaint: ABDOMINAL PAIN Stated Complaint: ABD PAIN History of Present Illness The patient is a 26 year old male who presents to the Emergency Room with complaints of abdominal pain. The patient states the pain started suddenly this morning. He states he initially noticed pain in his right testicle but then the pain seemed to move to the right lower quadrant of the abdomen. He rates his discomfort a 10/10. He reports associated nausea. He denies any fevers. He denies any recent illness. He denies any pain in his chest or trouble breathing. He denies any dysuria, urgency, frequency, hematuria. He denies any history of kidney stone. He denies any surgery on his abdomen. Review of Systems A 10 system review of systems was completed with positives and pertinent negatives listed in the HPI. Past Medical/Surgical History Medical Problems: (1) Alcohol Abuse-Unspec (2) Cannabis Abuse-Unspec (3) Cocaine Abuse-Unspec (4) Sepsis (5) Tobacco Use Disorder Family History No family history noted Social History Smoking Status: Current Every Day Smoker Alcohol Use: occasionally Drug Use: none Marital Status: single Housing Status: lives with significant other Occupation Status: employed, unemployed Current/Historical Medications Scheduled Tamsulosin Hcl (Flomax), 0.4 MG PO DAILY Scheduled PRN Acetaminophen (Tylenol), 1,000 MG PO Q6H PRN for Pain Ibuprofen Tab (Advil), 400-600 MG PO Q6H PRN for Pain Oxycodone Ir (Roxicodone Ir), 1-2 TAB PO Q4H PRN for Pain Physical Exam Vital Signs Date Time Temp Pulse Resp B/P (MAP) Pulse Ox O2 Delivery O2 Flow Rate FiO2 01/20/17 07:48 77 18 129/82 100 01/20/17 06:59 82 18 137/86 99 Room Air 01/20/17 05:45 36.3 75 16 133/88 97 Room Air 01/20/17 04:39 65 01/20/17 04:14 74 18 134/89 Room Air Physical Exam VITALS: Vitals are noted on the nurse's note and reviewed by myself. Vital signs stable. GENERAL: This is a 26-year-old male who appears to be in pain, in no acute distress, nondiaphoretic, well-developed well-nourished. SKIN: The skin was without rashes, erythema, edema, or bruising. There is no tenting of the skin. Capillary reflex less than 2 seconds. HEAD: Normocephalic atraumatic. EARS: The external ears are normal in appearance EYES: Pupils equal round and reactive to light and accommodation. Conjunctivae without injection, sclerae without icterus. Extraocular movements intact. NOSE: Patent, turbinates without inflammation or discharge. MOUTH: Mucous membranes moist. Tonsils are not enlarged. Pharynx without erythema or exudate. Uvula midline. Airway patent. Tongue does not deviate. NECK: Supple without nuchal rigidity. No lymphadenopathy. No thyromegaly. Cervical spine is nontender. No JVD. HEART: Regular rate and rhythm without murmurs gallops or rubs. LUNGS: Clear to auscultation bilaterally without wheezes, rales or rhonchi. No retractions or accessory muscle use. ABDOMEN: Positive bowel sounds x 4. Soft, marked right lower quadrant tenderness, without masses or organomegaly. Vanegas sign negative. : The external genitalia is normal in appearance. There is no erythema, edema or tenderness of the testicles. There is no obvious hernia. MUSCULOSKELETAL: No muscle atrophy, erythema, or edema noted. Full range of motion in all extremities. . Strength 5/5 throughout. NEURO: Patient was alert and oriented to person place and time. No focal neurological deficits. Medical Decision & Procedures ER Provider Diagnostic Interpretation: ABD/PELVIS WITHOUT FOR STONE CT DOSE: 290.01 mGy.cm HISTORY: Flank pain right flank pain TECHNIQUE: Multiaxial CT images of the abdomen and pelvis were performed without the use of intravenous and oral contrast according to the standard department stone protocol. A dose lowering technique was utilized adhering to the principles of ALARA. COMPARISON STUDY: None. FINDINGS: Lung bases are clear. Liver spleen and pancreas are unremarkable. Mild fullness right renal collecting system and right ureter. 2 mm nonobstructing mid pole right renal calcification. Mild fullness right ureter. 2.5 mm nonobstructing calculus right ureterovesical junction. Bladder is midline. Bowel pattern overall is nonobstructive. Poor visibility of the appendix although no significant right lower quadrant infiltrative and/or inflammatory process is appreciated. IMPRESSION: 1. 2.5 mm nonobstructing calcification right ureterovesical junction. 2. Small right renal nonobstructing calcification. 3. Nonobstructive bowel pattern. Laboratory Results 01/20/17 04:30 Red Blood Count 4.43, Mean Corpuscular Volume 90.3, Mean Corpuscular Hemoglobin 30.7, Mean Corpuscular Hemoglobin Concent 34.0, Mean Platelet Volume 9.1, Neutrophils (%) (Auto) 44.6, Lymphocytes (%) (Auto) 39.2, Monocytes (%) (Auto) 9.0, Eosinophils (%) (Auto) 5.9, Basophils (%) (Auto) 1.1, Neutrophils # (Auto) 4.32, Lymphocytes # (Auto) 3.80, Monocytes # (Auto) 0.87, Eosinophils # (Auto) 0.57, Basophils # (Auto) 0.11 01/20/17 04:30 Test 01/20/17 04:30 White Blood Count 9.69 K/uL (4.8-10.8) Red Blood Count 4.43 M/uL (4.7-6.1) Hemoglobin 13.6 g/dL (14.0-18.0) Hematocrit 40.0 % (42-52) Mean Corpuscular Volume 90.3 fL (80-100) Mean Corpuscular Hemoglobin 30.7 pg (25-34) Mean Corpuscular Hemoglobin Concent 34.0 g/dl (32-36) Platelet Count 295 K/uL (130-400) Mean Platelet Volume 9.1 fL (7.4-10.4) Neutrophils (%) (Auto) 44.6 % Lymphocytes (%) (Auto) 39.2 % Monocytes (%) (Auto) 9.0 % Eosinophils (%) (Auto) 5.9 % Basophils (%) (Auto) 1.1 % Neutrophils # (Auto) 4.32 K/uL (1.4-6.5) Lymphocytes # (Auto) 3.80 K/uL (1.2-3.4) Monocytes # (Auto) 0.87 K/uL (0.11-0.59) Eosinophils # (Auto) 0.57 K/uL (0-0.5) Basophils # (Auto) 0.11 K/uL (0-0.2) RDW Standard Deviation 41.9 fL (36.4-46.3) RDW Coefficient of Variation 12.7 % (11.5-14.5) Immature Granulocyte % (Auto) 0.2 % Immature Granulocyte # (Auto) 0.02 K/uL (0.00-0.02) Anion Gap 6.0 mmol/L (3-11) Est Creatinine Clear Calc Drug Dose 100.4 ml/min Estimated GFR () 119.0 Estimated GFR (Non- 102.7 BUN/Creatinine Ratio 11.1 (10-20) Calcium Level 9.1 mg/dl (8.5-10.1) Total Bilirubin 0.4 mg/dl (0.2-1) Aspartate Amino Transf (AST/SGOT) 10 U/L (15-37) Alanine Aminotransferase (ALT/SGPT) 18 U/L (12-78) Alkaline Phosphatase 140 U/L (45-117) Total Protein 7.1 gm/dl (6.4-8.2) Albumin 3.8 gm/dl (3.4-5.0) Globulin 3.3 gm/dl (2.5-4.0) Albumin/Globulin Ratio 1.2 (0.9-2) Medications Administered Medications (Trade) Dose Ordered Sig/Saira Route Start Time Stop Time Status Last Admin Dose Admin Sodium Chloride 1,000 ml @ 999 mls/hr Q1H1M STAT IV 01/20/17 04:29 01/20/17 05:29 DC 01/20/17 04:37 999 MLS/HR Hydromorphone HCl (Dilaudid Inj) 1 mg NOW STAT IV 01/20/17 04:29 01/20/17 04:30 DC 01/20/17 04:35 1 MG Ondansetron HCl (Zofran Inj) 4 mg NOW STAT IV 01/20/17 04:29 01/20/17 04:30 DC 01/20/17 04:35 4 MG Hydromorphone HCl (Dilaudid Inj) 1 mg NOW STAT IV 01/20/17 05:08 01/20/17 05:10 DC 01/20/17 05:13 1 MG Ketorolac Tromethamine (Toradol Inj) 30 mg NOW STAT IV 01/20/17 06:52 01/20/17 06:53 DC 01/20/17 06:57 30 MG ED Course The patient was seen and examined. Previous visits were reviewed. The patient does not have a fever or leukocytosis. He has a mild anemia. He does not have any significant electrolyte abnormality. CT scan of the abdomen and pelvis without IV or oral contrast was obtained. The patient has a 2.5 mm kidney stone at the right UVJ. The patient was hydrated normal saline solution He was given a total of 2 mg IV Dilaudid The patient still complained of pain. He was given 30 mg IV Toradol and his pain improved to a tolerable level. The patient has a 2.5 mm stone at the right UVJ. His pain was managed with the above treatment. He does not have a fever. The patient would like to go home and have outpatient management. He was given prescription for OxyIR and Flomax. He should return with fevers or intractable pain. Otherwise, he should follow up with his family doctor or urologist if symptoms persist. The case was discussed with Dr. lai who agrees with the assessment and treatment plan. Medical Decision DIFFERENTIAL DIAGNOSIS: Hepatitis, cholecystitis, cholangitis, biliary colic, pancreatitis, pneumonia, subdiaphragmatic abscess, appendicitis, inguinal hernia , nephrolithiasis, inflammatory bowel disease, mesenteric adenitis, peptic ulcer disease, GERD, gastritis, pancreatitis, myocardial infarction, pericarditis, ruptured aortic aneurysm, appendicitis, gastroenteritis, bowel obstruction, splenic infarct, diverticulitis, mesenteric ischemia, metabolic, peritonitis, among others. [place] Drug Monitoring Program Search Results: patient reviewed within database, no issues identified Impression Primary Impression: Kidney stone Departure Information Dispostion Home / Self-Care Condition GOOD Prescriptions Tamsulosin Hcl (FLOMAX) 0.4 Mg Cap 0.4 MG PO DAILY for 7 Days, #7 CAP Prov: Marnie Bowen PA-C 01/20/17 Oxycodone Ir (Roxicodone Ir) 5 Mg Tab 1-2 TAB PO Q4H Y for Pain, #36 TAB For Initial Treatment Prov: Marnie Bowen PA-C 01/20/17 Referrals No Doctor, Assigned (PCP) Terence Monte D.O. Patient Instructions Kidney Stones, My [facility] Additional Instructions The patient 600 mg every 6-8 hours or moderate pain Flomax once daily as prescribed, until finished Oxy IR 1-2 tablets every 4-6 hrs as needed for worse pain. No driving or alcohol use with Oxy IR. Return with any fevers or intractable pain Otherwise, follow up with your family doctor and/or urology if the stone does not pass in the next 5-7 days
[2017-01-20 04:38] LABS: BASO % 1.1 %; BASO ABS # 0.11 K/uL (0-0.2); COMPLETE YES; EOS % 5.9 %; IG% 0.2 %; LYMPH % 39.2 %; MEAN CELL VOLUME 90.3 fL (80-100); MEAN CORPUSCULAR HEMOGLOBIN 30.7 pg (25-34); MEAN PLATELET VOLUME 9.1 fL (7.4-10.4); NEUT % 44.6 %; PLATELET COUNT 295 K/uL (130-400); RED BLOOD COUNT 4.43 M/uL (4.7-6.1); WHITE BLOOD COUNT 9.69 K/uL (4.8-10.8)
[2017-01-20 04:55] LABS: BUN/CREATININE RATIO 11.1 (10-20); CALCIUM 9.1 mg/dl (8.5-10.1); POTASSIUM 3.9 mmol/L (3.5-5.1)
[2017-01-20 04:58] LABS: ALB/GLOB RATIO 1.2 (0.9-2)
[2017-01-20 05:45] VITALS: TEMP 36.3
--- NOTE | 2017-01-20 06:50 | DIAGNOSTIC IMAGING REPORT ---
ABD/PELVIS WITHOUT FOR STONE CT DOSE: 290.01 mGy.cm HISTORY: Flank pain right flank pain TECHNIQUE: Multiaxial CT images of the abdomen and pelvis were performed without the use of intravenous and oral contrast according to the standard department stone protocol. A dose lowering technique was utilized adhering to the principles of ALARA. COMPARISON STUDY: None. FINDINGS: Lung bases are clear. Liver spleen and pancreas are unremarkable. Mild fullness right renal collecting system and right ureter. 2 mm nonobstructing mid pole right renal calcification. Mild fullness right ureter. 2.5 mm nonobstructing calculus right ureterovesical junction. Bladder is midline. Bowel pattern overall is nonobstructive. Poor visibility of the appendix although no significant right lower quadrant infiltrative and/or inflammatory process is appreciated. IMPRESSION: 1. 2.5 mm nonobstructing calcification right ureterovesical junction. 2. Small right renal nonobstructing calcification. 3. Nonobstructive bowel pattern. The above report was generated using voice recognition software. It may contain grammatical, syntax or spelling errors. Electronically signed by: John Hoang M.D. 01/20/2017 6:49 AM Dictated Date/Time: 01/20/2017 6:46 AM
[2017-01-20] MEDS ORDERED: KETOROLAC TROMETHAMINE 30 MG/ML VIAL IV STA (06:52)
[2017-01-20] MEDS ORDERED: OXYC1TAB3 PO (07:27)
[2017-01-20] MEDS ORDERED: TAMS0.4C38 PO (07:27)
[2017-01-20 07:48] VITALS: BP 129/82; PULSE 77; O2SAT 100
== END 2017-01-20 07:49 | disposition home or self-care (01) ==
LOC: C.EDB 04:12
DX: N20.0 Calculus of kidney (principal); F17.200 Nicotine dependence, unspecified, uncomplicated

== ENCOUNTER 2017-12-06 01:30 | Emergency (ER) | payer OTHER ==
[~2017-12-06] VITALS: Ht 182.9 cm; Wt 60.1 kg
[~2017-12-06 01:30] MED LIST changes: -ACET-1256 PO; -IBUP-103 PO; +OXYC-90 PO
[2017-12-06 01:37] VITALS: TEMP 36.7; Ht 182.9 cm; Wt 60.1 kg
[2017-12-06] MEDS ORDERED: KETOROLAC TROMETHAMINE 30 MG/ML VIAL IV STA (02:13)
[2017-12-06] MEDS ORDERED: CLINDAMYCIN IV 900 MG in DEXTROSE 5% 100ML 100 ML IV ONE (02:15)
[2017-12-06 02:41] LABS: BASO % 0.5 %; BASO ABS # 0.05 K/uL (0-0.2); EOS % 5.9 %; EOS ABS # 0.62 K/uL (0-0.5); HEMATOCRIT 40.1 % (42-52); HEMOGLOBIN 13.5 g/dL (14.0-18.0); IG# 0.02 K/uL (0.00-0.02); LYMPH % 22.5 %; LYMPH ABS # 2.37 K/uL (1.2-3.4); MEAN CELL VOLUME 89.9 fL (80-100); MEAN CORPUSCULAR HEMOGLOBIN 30.3 pg (25-34); MEAN CORPUSCULAR HGB CONC 33.7 g/dl (32-36); MEAN PLATELET VOLUME 9.9 fL (7.4-10.4); MONO ABS # 0.74 K/uL (0.11-0.59); NEUT % 63.9 %; NEUT ABS # 6.73 K/uL (1.4-6.5); PLATELET COUNT 254 K/uL (130-400); RED CELL DISTRIBUTION WIDTH CV 12.7 % (11.5-14.5); RED CELL DISTRIBUTION WIDTH SD 41.5 fL (36.4-46.3); WHITE BLOOD COUNT 10.53 K/uL (4.8-10.8)
[2017-12-06 03:01] LABS: ALBUMIN 4.2 gm/dl (3.4-5.0); CREATININE 0.92 mg/dl (0.60-1.40); POTASSIUM 3.7 mmol/L (3.5-5.1); TOTAL PROTEIN 8.2 gm/dl (6.4-8.2)
[2017-12-06] MEDS ORDERED: CLIN300C2 PO (03:56)
[2017-12-06 04:05] VITALS: BP 130/78; PULSE 84; O2SAT 98
--- NOTE | 2017-12-06 07:34 | DIAGNOSTIC IMAGING REPORT ---
LEFT MIDDLE FINGER 3 VIEWS HISTORY: Left 3rd digit. Infection with incision and drainage of pustule over distal joint done COMPARISON: None. FINDINGS: There is no fracture or dislocation. Diffuse soft tissue swelling. No underlying bony abnormality to suggest osteomyelitis. No radiopaque foreign bodies. IMPRESSION: Diffuse soft tissue swelling. No underlying bony abnormality. Electronically signed by: Mekhi Tanner M.D. 12/06/2017 7:32 AM Dictated Date/Time: 12/06/2017 7:31 AM
--- NOTE | 2017-12-07 05:19 | EMERGENCY ROOM VISIT NOTE ---
History First contact with patient: 01:52 Chief Complaint: FINGER PAIN Stated Complaint: PAIN,INFLAMATION,STIFFNESS IN FINGER OF LFT HAND History of Present Illness The patient is a 27 year old male who presents to the Emergency Room with complaints of pain and swelling to his left middle finger. The patient believes that he may have had a foreign body in the finger last week, that he removed. Over the past several days he has had some worsening pain and swelling. He went to an urgent care clinic and was started on Keflex for possible infection. The patient states the pain is much worse over the past 24 hours. He has difficulty opening and closing a fist because of the swelling. He has not had fever or chills. The patient rates his discomfort a 9/10. Review of Systems More than 10 systems were reviewed and otherwise negative with the exception of history of present illness. Past Medical/Surgical History Medical Problems: (1) Alcohol Abuse-Unspec (2) Cannabis Abuse-Unspec (3) Cocaine Abuse-Unspec (4) Sepsis (5) Tobacco Use Disorder Family History No family history noted Social History Smoking Status: Current Every Day Smoker Alcohol Use: occasionally Drug Use: none Marital Status: single Housing Status: lives with significant other Occupation Status: employed, unemployed Current/Historical Medications Scheduled Clindamycin Hcl (Cleocin), 300 MG PO QID Scheduled PRN Oxycodone Ir (Roxicodone Ir), 1-2 TAB PO Q6 PRN for Pain Physical Exam Vital Signs Date Time Temp Pulse Resp B/P (MAP) Pulse Ox O2 Delivery O2 Flow Rate FiO2 12/06/17 04:05 84 18 130/78 98 12/06/17 03:15 90 16 128/63 100 Room Air 12/06/17 01:37 36.7 95 18 90/47 100 Room Air Physical Exam VITALS: Vitals are noted on the nurse's note and reviewed by myself. Vital signs stable. GENERAL: Well-developed, well-nourished, white male, who is in no acute distress and resting comfortably. Patient is cooperative with the examination. HEART: Regular rate and rhythm without murmurs gallops or rubs. LUNGS: Clear to auscultation bilaterally without wheezes, rales or rhonchi. No retractions or accessory muscle use. MUSCULOSKELETAL: There is obvious edema to the left third digit. There appears to be a small pustule on the palmar aspect over the distal joint. Neurovascular status is intact. The patient has difficulty flexing and extending at the distal joint, but is able to flex and extend at the proximal joint. There is no lymphangitic streaking. Medical Decision & Procedures ER Provider Diagnostic Interpretation: LEFT MIDDLE FINGER 3 VIEWS HISTORY: Left 3rd digit. Infection with incision and drainage of pustule over distal joint done COMPARISON: None. FINDINGS: There is no fracture or dislocation. Diffuse soft tissue swelling. No underlying bony abnormality to suggest osteomyelitis. No radiopaque foreign bodies. IMPRESSION: Diffuse soft tissue swelling. No underlying bony abnormality. Laboratory Results 12/06/17 02:31 Red Blood Count 4.46, Mean Corpuscular Volume 89.9, Mean Corpuscular Hemoglobin 30.3, Mean Corpuscular Hemoglobin Concent 33.7, Mean Platelet Volume 9.9, Neutrophils (%) (Auto) 63.9, Lymphocytes (%) (Auto) 22.5, Monocytes (%) (Auto) 7.0, Eosinophils (%) (Auto) 5.9, Basophils (%) (Auto) 0.5, Neutrophils # (Auto) 6.73, Lymphocytes # (Auto) 2.37, Monocytes # (Auto) 0.74, Eosinophils # (Auto) 0.62, Basophils # (Auto) 0.05 12/06/17 02:31 Test 12/06/17 02:31 12/06/17 02:42 White Blood Count 10.53 K/uL (4.8-10.8) Red Blood Count 4.46 M/uL (4.7-6.1) Hemoglobin 13.5 g/dL (14.0-18.0) Hematocrit 40.1 % (42-52) Mean Corpuscular Volume 89.9 fL (80-100) Mean Corpuscular Hemoglobin 30.3 pg (25-34) Mean Corpuscular Hemoglobin Concent 33.7 g/dl (32-36) Platelet Count 254 K/uL (130-400) Mean Platelet Volume 9.9 fL (7.4-10.4) Neutrophils (%) (Auto) 63.9 % Lymphocytes (%) (Auto) 22.5 % Monocytes (%) (Auto) 7.0 % Eosinophils (%) (Auto) 5.9 % Basophils (%) (Auto) 0.5 % Neutrophils # (Auto) 6.73 K/uL (1.4-6.5) Lymphocytes # (Auto) 2.37 K/uL (1.2-3.4) Monocytes # (Auto) 0.74 K/uL (0.11-0.59) Eosinophils # (Auto) 0.62 K/uL (0-0.5) Basophils # (Auto) 0.05 K/uL (0-0.2) RDW Standard Deviation 41.5 fL (36.4-46.3) RDW Coefficient of Variation 12.7 % (11.5-14.5) Immature Granulocyte % (Auto) 0.2 % Immature Granulocyte # (Auto) 0.02 K/uL (0.00-0.02) Erythrocyte Sedimentation Rate 14 mm/hr (0-14) Anion Gap 6.0 mmol/L (3-11) Est Creatinine Clear Calc Drug Dose 101.6 ml/min Estimated GFR () 130.7 Estimated GFR (Non- 112.8 BUN/Creatinine Ratio 8.9 (10-20) Calcium Level 9.0 mg/dl (8.5-10.1) Total Bilirubin 0.2 mg/dl (0.2-1) Aspartate Amino Transf (AST/SGOT) 11 U/L (15-37) Alanine Aminotransferase (ALT/SGPT) 17 U/L (12-78) Alkaline Phosphatase 164 U/L (45-117) C-Reactive Protein 3.35 mg/dl (0-0.29) Total Protein 8.2 gm/dl (6.4-8.2) Albumin 4.2 gm/dl (3.4-5.0) Globulin 4.0 gm/dl (2.5-4.0) Albumin/Globulin Ratio 1.1 (0.9-2) Bedside Lactic Acid Venous 1.22 mmol/L (0.90-1.70) Medications Administered Medications (Trade) Dose Ordered Sig/Saira Route Start Time Stop Time Status Last Admin Dose Admin Clindamycin Phosphate 900 mg/ Dextrose 106 ml @ 100 mls/hr ONE ONCE IV 12/06/17 02:15 12/06/17 03:18 DC 12/06/17 02:40 100 MLS/HR Ketorolac Tromethamine (Toradol Inj) 30 mg NOW STAT IV 12/06/17 02:13 12/06/17 02:16 DC 12/06/17 02:40 30 MG Procedure I examined the patient. Verbal consent was obtained to perform the procedure. After saline and Betadine cleansing and ethyl chloride anesthesia, the pustule was drained utilizing 18-gauge needle. A small amount of material was released and a swab was sent for culture. The cavity was irrigated and the patient was placed in a bacitracin dressing. He tolerated this well. ED Course Physical exam and history were performed. Nursing notes, EMR, and Medication List were personally reviewed. Patient appears to have infection of his left third finger. I did drain the small pustule he had on the palmar aspect of the left third finger and did send a culture to the lab. The patient is currently on Keflex and I have concerned because of his symptoms. IV access was established and labs were obtained. He was given IV clindamycin. X-ray was performed. The patient's blood work is as above and was reviewed. He does not have significantly elevated white blood cell count, gross anemia, bandemia, or significant electrolyte imbalance. Transaminases are nondiagnostic. Lactic acid is negative. His CRP is elevated. Blood cultures are pending. X-ray was reviewed by myself and radiology as showing no acute bony process to suggest osteomyelitis. I had a lengthy discussion with the patient regarding his findings. I have concerned that he has a worsening infection that seems to have failed outpatient treatment of 2 days Keflex. I recommended admission to the hospital , however the patient does not wish to stay. He evidently has an appointment later today with his primary care physician. The patient will be given a course of clindamycin pending cultures. He understands the importance of a follow-up appointment in 12-24 hours for recheck. If he changes his mind about admission he is to return to ER immediately. The patient voiced understanding and rated his discomfort as 0/10 at time of departure. The chart was completed utilizing [employer] Voice Recognition Software. Grammatical errors, random word insertions, pronoun errors, and incomplete sentences are an occasional consequence of this system due to software limitations, ambient noise, and hardware issues. Any formal questions or concerns about the content, text, or information contained within the body of this dictation should be directly addressed to the provider for clarification. . Medical Decision Differential diagnosis: Etiologies such as cellulitis, abscess, flexor tenosynovitis, MRSA infection, DVT, necrotizing fasciitis, dermatitis, drug eruption, as well as others were entertained.. Impression Primary Impression: Finger infection Departure Information Dispostion Home / Self-Care Condition GOOD Prescriptions Clindamycin Hcl (CLEOCIN) 300 Mg Cap 300 MG PO QID for 10 Days, #40 CAP Prov: Sanjay Das PA-C 12/06/17 Forms HOME CARE DOCUMENTATION FORM, IMPORTANT VISIT INFORMATION Patient Instructions My [facility] Additional Instructions You were seen and evaluated today on an emergency basis only. This is not a substitute for, or an effort to provide, complete comprehensive medical care. It is not possible to recognize and treat all injuries or illnesses in a single emergency department visit. For this reason it is recommended that you followup with your primary care physician later today for ongoing care and evaluation. Call the office first thing at 8 AM when they open to help make your appointment. Take clindamycin 300 mg 4 times daily for the next 10 days. We recommend you take this medication with a probiotic or with eating yogurt as it can cause upset stomach. You are welcome to return to the emergency department anytime with new, worsening, or concerning symptoms.
== END 2017-12-06 04:06 | disposition home or self-care (01) ==
LOC: C.EDB 01:31
DX: L08.9 Local infection of the skin and subcutaneous tissue, unspecified (principal); F17.200 Nicotine dependence, unspecified, uncomplicated